=== PATIENT | male | born 1980 | race Caucasian/White ===

== ENCOUNTER 2021-04-06 16:24 | Emergency (ER) | payer OTHER ==
[~2021-04-06] VITALS: Ht 180.3 cm; Wt 95.3 kg
[2021-04-06 16:40] VITALS: BP 107/60
[2021-04-06] MEDS ORDERED: PIPERACILLIN /TAZOBACTAM 3.375 G in IV D5W 50 ML IV ONE (17:30)
[2021-04-06] MEDS ORDERED: AMOX1TAB16 PO (18:22)
--- NOTE | 2021-04-06 18:46 | NUR ---
IV removed. Catheter intact and site benign. Pressure and 4x4 applied to site. No bleeding noted.Patient discharged to home in stable condition. Written and verbal after care instructions given. Patient verbalizes understanding of instruction.
== END 2021-04-06 18:47 | disposition home or self-care (01) ==
LOC: ER 16:29
DX: S51.851A Open bite of right forearm, initial encounter (principal); B99.9 Unspecified infectious disease; W54.0XXA Bitten by dog, initial encounter; Y93.89 Activity, other specified; Y92.89 Other specified places as the place of occurrence of the external cause; Y99.8 Other external cause status
CPT/HCPCS: 96365; 99284; J2543; J7060

== ENCOUNTER 2021-04-15 12:48 | Emergency (ER) | payer OTHER ==
[~2021-04-15] VITALS: Ht 180.3 cm; Wt 82.6 kg
[~2021-04-15 12:48] MED LIST: AMOX1TAB16 PO
[2021-04-15] MEDS ORDERED: PIPERACILLIN /TAZOBACTAM 3.375 G in IV D5W 50 ML IV ONE (13:00)
--- NOTE | 2021-04-15 13:00 | NUR ---
BIBSELF C/O LEFT HAND SWELLING AND REDNESS FROM DOG BITE. PT ALERT OX4, CALM, COOPERATIVE, NO DISTRESS NOTED
--- NOTE | 2021-04-15 13:09 | NUR ---
[employer] FRUIT CROPS AT PT'S BEDSIDE
--- NOTE | 2021-04-15 13:27 | NUR ---
COVID SWAB DONE AND SENT TO LAB
[2021-04-15 13:31] LABS: BASOPHILS % (AUTO) 0.5 % (0.0-2.0); EOSINOPHILS % (AUTO) 3.2 % (0.0-6.0); HEMATOCRIT 39 % (39-51); HEMOGLOBIN 13.4 g/dL (13.5-17.5); LYMPHOCYTES # (AUTO) 1.3 K/uL (0.8-4.8); MEAN CORPUSCULAR HGB CONC 34 g/dl (31.0-36.0); MEAN CORPUSCULAR VOLUME 89 fL (80-96); MONOCYTES # (AUTO) 0.4 K/uL (0.1-1.30); MONOCYTES % (AUTO) 7.8 % (2.0-12.0); NEUTROPHILS # (AUTO) 3.6 K/uL (1.8-8.9); NEUTROPHILS % (AUTO) 64.5 % (43.0-81.0); PLATELET COUNT (AUTO) 312 K/uL (150-450); RED BLOOD CELL COUNT(AUTO) 4.42 MIL/uL (4.5-6.0); WHITE BLOOD COUNT (AUTO) 5.6 K/uL (4.3-11.0)
[2021-04-15 13:39] LABS: CALCIUM, SERUM 8.6 mg/dL (8.5-10.1); CREATININE 1.1 mg/dL (0.6-1.3); POTASSIUM 3.7 mmol/L (3.5-5.1)
[2021-04-15] MEDS ORDERED: VANCOMYCIN 1 GM in IV D5W 250 ML IV ONE (14:00)
[2021-04-15] MEDS ORDERED: DOXY100C2 PO (15:51)
--- NOTE | 2021-04-15 16:24 | NUR ---
IV removed. Catheter intact and site benign. Pressure and 4x4 applied to site. No bleeding noted. Patient does not wish to proceed with medical care recommended by Dr. DE LOS SANTOS. Patient given information related to possible complications, up to and including , which could occur as a result of leaving the hospital at this time. Patient verbalizes understanding of risks involved due to leaving against medical advice. Patient has signed AMA form.
[2021-04-15 16:26] VITALS: BP 138/75
== END 2021-04-15 16:27 | disposition left against medical advice (07) ==
LOC: ER 12:52
DX: S61.452A Open bite of left hand, initial encounter (principal); L08.9 Local infection of the skin and subcutaneous tissue, unspecified; W54.0XXA Bitten by dog, initial encounter; Y92.89 Other specified places as the place of occurrence of the external cause; Z20.822 Contact with and (suspected) exposure to COVID-19; Z53.29 Procedure and treatment not carried out because of patient's decision for other reasons; M79.89 Other specified soft tissue disorders
CPT/HCPCS: 36415; 73130; 80048; 85025; 87040 ×2; 87426; 96365; 96368; 99284; C9803; J2543; J3370; J7060